=== PATIENT | male | born 1980 | race African-American/Black ===

== ENCOUNTER 2016-02-26 11:30 | Emergency (ER) | payer MEDICAID ==
[~2016-02-26] VITALS: Ht 185.4 cm; Wt 70.3 kg
[~2016-02-26 11:30] MED LIST: GENTAK5 ML RIGHT EYE; NAPHCON-A EYE D15 ML RIGHT EYE
[2016-02-26 12:45] VITALS: BP 131/81
[2016-02-26] MEDS ORDERED: Norco 7.5mg/325mg tab ORAL ONE (12:45)
[2016-02-26] MEDS ORDERED: Bicillin LA 1.2 Million Units Syr IM ONE (12:45)
--- NOTE | 2016-02-26 12:48 | Emergency Room Report ---
History of Present Illness General Chief Complaint: Toothache Source: Patient Present Illness HPI The patient is a 36-year-old male presenting with right lower tooth pain which began 3 days prior. Patient states the pain is a 7/10 constant dull throbbing ache and is worse with chewing. Pain does not radiate. Pt has not contacted dentist. Patient denies F, Chills, SERRANO, neck pain/stiffness, dizziness, blurred vision, cough, sore throat Allergies: Coded Allergies: No Known Allergies (Unverified , 07/10/14) Patient History Past Medical History: see triage record Pertinent Family History: none Reviewed Nursing Documentation: PMH: Agreed, PSxH: Agreed Nursing Documentation-PMH Past Medical History: No Stated History Review of Systems All Other Systems: negative except mentioned in HPI Physical Exam Vital Signs Date Time Temp Pulse Resp B/P Pulse Ox O2 Delivery O2 Flow Rate FiO2 02/26/16 11:45 98.1 75 16 131/81 96 Room Air Sp02 EP Interpretation: reviewed, normal General Appearance: no apparent distress, alert, GCS 15, non-toxic Head: normocephalic, atraumatic ENT: normal pharynx, normal voice, TMs + canals normal, uvula midline, moist mucus membranes, other - R lower premolar: obvious caries with surrounding erythema. TTP. No fluctuance. Neck: full range of motion, supple/symm/no masses Musculoskeletal: back normal, gait/station normal, normal range of motion, non- tender Neurologic: alert, oriented x3, responsive, motor strength/tone normal, sensory intact, speech normal Psychiatric: judgement/insight normal, memory normal, mood/affect normal, no suicidal/homicidal ideation Skin: normal color, no rash, warm/dry, well hydrated Lymphatic: no adenopathy Medical Decision Making PA Attestation Dr Terry is my supervising physician. Patient management was discussed with my supervising physician Diagnostic Impression: Primary Impression: Dental infection ER Course The patient is a 36-year-old male presenting with right lower tooth pain which began 3 days prior. PE: Vitals WNL. NAD R lower premolar: obvious caries with surrounding erythema. TTP. No fluctuance. No film of tongue or mucosa. Uvula midline. Otherwise unremarkable. Pt given Bicillin LA IM and norco for pain. The pt will FU with dentist ISABEL. ER precautions given. DC'ed home with prescription for motrin and norco Last Vital Signs Date Time Temp Pulse Resp B/P Pulse Ox O2 Delivery O2 Flow Rate FiO2 02/26/16 11:45 98.1 75 16 131/81 96 Room Air Status: improved Disposition: HOME, SELF-CARE Condition: Improved Scripts Hydrocodone Bit/Acetaminophen 5-325* (NORCO 5-325 TABLET*) 1 Each Tablet 1 TAB ORAL Q4H Y for For Pain, #10 TAB Prov: MIREYA PEDRAZA P.AHailey 02/26/16 Ibuprofen* (MOTRIN*) 600 Mg Tablet 600 MG ORAL Q6H Y for For Pain, #30 TAB Prov: MIREYA PEDRAZA P.A. 02/26/16 MIREYA PEDRAZA PMica Feb 26, 2016 12:48
[2016-02-26] MEDS ORDERED: IBUPROFEN600 MG ORAL (12:51)
[2016-02-26] MEDS ORDERED: NORCO 5-325 TA1 EAC1 ORAL (12:51)
[2016-02-26 13:37] VITALS: BP 131/81
== END 2016-02-26 13:37 | disposition home or self-care (01) ==
LOC: EMR 12:15
DX: K04.7 Periapical abscess without sinus (principal)
CPT/HCPCS: 96372; 99283; J0561

== ENCOUNTER 2016-04-16 23:29 | Emergency (ER) | payer MEDICAID ==
[~2016-04-16] VITALS: Ht 185.4 cm; Wt 76.2 kg
[~2016-04-16 23:29] MED LIST changes: +IBUPROFEN600 MG ORAL; +NORCO 5-325 TA1 EAC1 ORAL
[2016-04-16] MEDS ORDERED: NKM (23:54)
[2016-04-17] VITALS: BP 127/80
[2016-04-17] MEDS ORDERED: PredniSONE 20mg tab ORAL ONE (00:15)
[2016-04-17] MEDS ORDERED: BENADRYL25 MG ORAL (00:18)
[2016-04-17] MEDS ORDERED: PREDNISONE20 MG ORAL (00:18)
[2016-04-17 00:25] VITALS: BP 127/80
--- NOTE | 2016-04-17 02:16 | Emergency Room Report ---
History of Present Illness General Chief Complaint: Eye Problems Source: Patient Present Illness HPI Patient is a 36-year-old male who presented after increased bilateral eye redness and swelling. Patient acute onset of symptoms after ingesting seafood. Patient stated that he had similar prior symptoms in the past. He had not been having any other locations of rash. Patient reported having some itching to the right eye predominantly. Patient denied any visual changes or flashing lights. He denied recent trauma. Allergies: Coded Allergies: No Known Allergies (Unverified , 07/10/14) Patient History Past Medical History: see triage record Reviewed Nursing Documentation: PMH: Agreed, PSxH: Agreed Nursing Documentation-PMH Past Medical History: No Stated History Review of Systems All Other Systems: negative except mentioned in HPI Physical Exam Vital Signs Date Time Temp Pulse Resp B/P Pulse Ox O2 Delivery O2 Flow Rate FiO2 04/16/16 23:49 97.9 72 16 148/78 99 Room Air General Appearance: well appearing, no apparent distress, alert, GCS 15 Head: normocephalic, atraumatic Eyes: bilateral eye other - eyelid swelling bilaterally, ENT: hearing grossly normal, normal voice Neck: full range of motion, supple Respiratory: normal breath sounds, no respiratory distress, speaking full sentences Cardiovascular #1: normal peripheral pulses, regular rate, rhythm Gastrointestinal: non tender, soft Musculoskeletal: normal inspection, back normal, no calf tenderness Neurologic: normal inspection, alert, oriented x3, normal gait Psychiatric: normal inspection, mood/affect normal Skin: no rash Medical Decision Making Diagnostic Impression: Primary Impression: Allergic conjunctivitis ER Course Patient presented for eye swelling. Differential diagnosis included was not limited to Kim-Marco A syndrome, urticaria, erythema multiforme, contact dermatitis, conjunctivitis, among other. Patient's benign exam and does not appear to require any further imaging or laboratory testing at this time the patient was given oral prednisone as well as Benadryl. Patient given prescriptions for further medications.The patient is advised to follow up with primary care doctor in 1-2 days. Patient is advised to return if any worsening condition or if any changes in status that are concerning. Last Vital Signs Date Time Temp Pulse Resp B/P Pulse Ox O2 Delivery O2 Flow Rate FiO2 04/17/16 00:25 98.1 76 16 127/80 100 Room Air Status: improved Disposition: HOME, SELF-CARE Condition: Stable Scripts Prednisone* (PREDNISONE*) 20 Mg Tablet 40 MG ORAL DAILY, #10 TAB Prov: Jarett Terry 04/17/16 Diphenhydramine Hcl* (BENADRYL*) 25 Mg Capsule 25 MG ORAL Q6H Y for Itching, #30 CAP Prov: Jarett Terry 04/17/16 Referrals: [facility],REFERR[facility] (PCP) Patient Instructions: Food Allergy Jarett Terry Apr 17, 2016 02:16
== END 2016-04-17 00:25 | disposition home or self-care (01) ==
LOC: EMR 23:59
DX: H10.10 Acute atopic conjunctivitis, unspecified eye (principal)
CPT/HCPCS: 99284